=== PATIENT | male | born 1935 | race African-American/Black ===

== ENCOUNTER 2023-04-15 13:15 | Emergency (ER) | payer MEDICARE ==
[~2023-04-15] VITALS: Ht 180.3 cm; Wt 77.0 kg
[2023-04-15 13:31] VITALS: O2SAT 100
[2023-04-15] MEDS ORDERED: CEPHALEXIN 250MG CAPSULE PO ONE (14:00)
[2023-04-15] MEDS ORDERED: CEPH500T MT (14:13)
[2023-04-15] MEDS ORDERED: BACITRACIN ZINC OINT UDPKT TOP ONE (14:30)
[2023-04-15 14:48] VITALS: BP 138/91; PULSE 92; RESP 16; TEMP 97.5
== END 2023-04-15 14:49 | disposition home or self-care (01) ==
LOC: ER 13:15
DX: I83.019 Varicose veins of right lower extremity with ulcer of unspecified site (principal); I10 Essential (primary) hypertension; Z99.2 Dependence on renal dialysis; L03.115 Cellulitis of right lower limb
CPT/HCPCS: 99283

== ENCOUNTER 2023-04-17 15:27 | Emergency (ER) | payer MEDICARE ==
[~2023-04-17] VITALS: Ht 180.3 cm; Wt 78.0 kg
[~2023-04-17 15:27] MED LIST: CEPH500T MT
[2023-04-17 16:22] VITALS: BP 131/70; PULSE 78; RESP 18; TEMP 98.3; O2SAT 100
== END 2023-04-17 22:00 | disposition home or self-care (01) ==
LOC: ER 15:27
DX: I83.009 Varicose veins of unspecified lower extremity with ulcer of unspecified site (principal); I10 Essential (primary) hypertension
CPT/HCPCS: 99281

== ENCOUNTER → 2025-04-16 | Outpatient (CLI) | payer MEDICARE, MEDICAID ==
[~2025-04-16] MED LIST changes: +AMLO10TA80 PO; +APIX5TAB MT; +ASPI-1160 PO; +BRIM10DR2 EACHEYE; -CEPH500T MT; +DORZ10DR32 EACHEYE; +FINA5TAB11 PO; +GADOTERATE MEGLUMINE 5 MMOL/10 ML VIAL IV ONE; +LOSA100T33 PO; +TRAV2.5D EACHEYE
== END | disposition home or self-care (01) ==
LOC: MRI 07:03
PROVIDERS: ATTEND Hospitalist
DX: N28.1 Cyst of kidney, acquired (principal); K44.9 Diaphragmatic hernia without obstruction or gangrene; N28.89 Other specified disorders of kidney and ureter; K76.89 Other specified diseases of liver; R91.8 Other nonspecific abnormal finding of lung field; I51.7 Cardiomegaly
CPT/HCPCS: 74183; A9577